=== PATIENT | male | born 1975 | race Caucasian/White ===

== ENCOUNTER 2017-03-12 11:18 | Emergency (ER) | payer OTHER, SELFPAY ==
[2017-03-12 11:23] VITALS: BMI 50.8
[2017-03-12 11:27] VITALS: BP 134/78; PULSE 67; RESP 18; TEMP 97.9; O2SAT 96
--- NOTE | 2017-03-12 11:41 | ED PDOC ---
Arrival/HPI - General Chief Complaint: Abdominal Pain Time Seen by Provider: 03/12/17 11:23 Historian: Patient - History of Present Illness Narrative History of Present Illness (Text): 03/12/17 11:41 41 year old male presents to the emergency department complaining of umbilical hernia that he has had since Dec 2015. Patient reports he was lifting at work today which made the pain worse. He states the discomfort is worse when coughing and urinating. Patient states he saw surgeon Dr. Viera for this complaint in the office but has not had surgery due to insurance issues. Patient also reports watery diarrhea today x2. Denies nausea, vomiting, hematuria, or fever. Time/Duration: Other (> 1 year) Symptom Onset: Gradual Symptom Course: Unchanged Past Medical History - Provider Review Nursing Documentation Reviewed: Yes - Infectious Disease Hx of Infectious Diseases: None - Tetanus Immunization Tetanus Immunization: Unknown - Past Medical History Past Medical History: No Previous - Cardiac Hx Cardiac Disorders: No - Pulmonary Hx Respiratory Disorders: Yes Hx Asthma: Yes (seasonal winter) Hx Bronchitis: Yes - Neurological Hx Neurological Disorder: No - HEENT Hx HEENT Disorder: No - Renal Hx Renal Disorder: No - Endocrine/Metabolic Hx Endocrine Disorders: No - Hematological/Oncological Hx Blood Disorders: No - Integumentary Hx Dermatological Disorder: No - Musculoskeletal/Rheumatological Hx Musculoskeletal Disorders: Yes (heel spur) Hx Arthritis: Yes (feet) Hx Fractures: Yes (right ankle, left wrist) - Gastrointestinal Hx Gastrointestinal Disorders: No Hx Bowel Surgery: No - Genitourinary/Gynecological Hx Genitourinary Disorders: No - Psychiatric Hx Psychophysiologic Disorder: No Hx Substance Use: No - Surgical History Hx Appendectomy: Yes (1998) Other/Comment: vasectomy (2015) - Anesthesia Hx Anesthesia: Yes Hx Anesthesia Reactions: No Hx Malignant Hyperthermia: No - Suicidal Assessment Feels Threatened In Home Enviroment: No Family/Social History - Physician Review Nursing Documentation Reviewed: Yes Family/Social History: Unknown Family HX Smoking Status: Former Smoker Hx Alcohol Use: No Hx Substance Use: No Hx Substance Use Treatment: No Allergies/Home Meds Allergies/Adverse Reactions: Allergies No Known Allergies Allergy (Verified 03/12/17 11:23) Review of Systems - Physician Review All systems were reviewed & negative as marked: Yes - Review of Systems Constitutional: absent: Fevers Gastrointestinal: Diarrhea, Other (Umbilical hernia). absent: Nausea, Vomiting Genitourinary Male: absent: Frequency, Hematuria Physical Exam Vital Signs Reviewed: Yes Vital Signs Temp Pulse Resp BP Pulse Ox 03/12/17 11:27 97.9 F 67 18 134/78 96 Temperature: Afebrile Blood Pressure: Normal Pulse: Regular Respiratory Rate: Normal Appearance: Positive for: Well-Appearing, Non-Toxic, Uncomfortable Pain Distress: None Mental Status: Positive for: Alert and Oriented X 3 - Systems Exam Head: Present: Atraumatic, Normocephalic Conjunctiva: Present: Normal Mouth: Present: Moist Mucous Membranes Neck: Present: Normal Range of Motion Respiratory/Chest: No: Respiratory Distress, Accessory Muscle Use Abdomen: Present: Normal Bowel Sounds, Hernias (Small umbilica hernia which is reduced). No: Tenderness, Distention, Peritoneal Signs Genitourinary Male: Present: Normal External Genitalia. No: Lesions, Testicle Tenderness, Penile Swelling, Masses, Erythema, Testicle Swelling Upper Extremity: Present: Normal Inspection. No: Cyanosis, Edema Lower Extremity: Present: Normal Inspection. No: Edema Neurological: Present: GCS=15, CN II-XII Intact, Speech Normal Skin: Present: Warm, Dry, Normal Color. No: Rashes Psychiatric: Present: Alert, Oriented x 3, Normal Insight, Normal Concentration Medical Decision Making ED Course and Treatment: 03/12/17 11:44 Dr. Viera evaluated the patient at bedside in the ER and states the patient should follow up in his office to schedule surgery. Patient in agreement with plan to discharged. Patient is stable for discharge. - Medication Orders Current Medication Orders: Discontinued Medications Ibuprofen (Motrin Tab) 600 mg PO STAT STA Stop: 03/12/17 11:43 Last Admin: 03/12/17 11:44 Dose: 600 mg Ibuprofen (Motrin Tab) Confirm Administered Dose 600 mg .ROUTE .STK-MED ONE Stop: 03/12/17 11:44 Last Admin: 03/12/17 11:45 Dose: - Scribe Statement The provider has reviewed the documentation as recorded by the Ramiro Tucker Provider Scribe Attestation: All medical record entries made by the Dorieibjay were at my direction and personally dictated by me. I have reviewed the chart and agree that the record accurately reflects my personal performance of the history, physical exam, medical decision making, and the department course for this patient. I have also personally directed, reviewed, and agree with the discharge instructions and disposition. Disposition/Present on Arrival - Present on Arrival Any Indicators Present on Arrival: No History of DVT/PE: No History of Uncontrolled Diabetes: No Urinary Catheter: No History of Decub. Ulcer: No History Surgical Site Infection Following: None - Disposition Have Diagnosis and Disposition been Completed?: Yes Diagnosis: Umbilical hernia Disposition: HOME/ ROUTINE Disposition Time: 11:50 Condition: STABLE Discharge Instructions (ExitCare): Umbilical Hernia (ED) Additional Instructions: Please follow up with the surgeon. Call today to make an appointment. Return to the ER for any worsening symptoms or pain, vomiting, fever, or for any other concerns. Referrals: Abdirizak Viera MD [Staff Provider] - Follow up with primary Forms: WORK NOTE
== END 2017-03-12 11:51 | disposition home or self-care (01) ==
LOC: ED 11:18
DX: K42.9 Umbilical hernia without obstruction or gangrene (principal)

== ENCOUNTER 2018-08-03 21:08 | Emergency (ER) | payer MEDICAID, SELFPAY ==
[2018-08-03 22:18] VITALS: BMI 36.3
[2018-08-03 22:22] VITALS: TEMP 98.2
[2018-08-03] MEDS ORDERED: Albuterol-Ipratrop 3 mg / 0.5 (3 ml) UD IH STA (23:00)
--- NOTE | 2018-08-03 23:38 | ED PDOC ---
Arrival/HPI - General Chief Complaint: ENT Problem Time Seen by Provider: 08/03/18 23:00 Historian: Patient - History of Present Illness Narrative History of Present Illness (Text): 08/04/18 00:19 42-year-old male presents today with a 2 week history of cough and a 2 week history of left ear pain. Patient states he was diagnosed with bronchitis and was put on a Medrol Dosepak and was given what he believes for antibiotics for the cough. Patient states he's been using nebulizer treatments at home and the cough has not resolved. He denies fevers or chills. He is also complaining of left ear pain with a decreased hearing in the left ear. Patient states he has a history of asthma. Patient denies vomiting or diarrhea. Patient complaining of nasal congestion. pt states today he was coughing so hard and pulled a muscle in the right ribs. No other complaints Past Medical History - Provider Review Nursing Documentation Reviewed: Yes - Travel History Have you recently traveled outside [place] w/in the past 3 mons?: No - Infectious Disease Hx of Infectious Diseases: None - Tetanus Immunization Tetanus Immunization: Unknown - Past Medical History Past Medical History: No Previous - Cardiac Hx Cardiac Disorders: No - Pulmonary Hx Respiratory Disorders: Yes Hx Asthma: Yes (seasonal winter) Hx Bronchitis: Yes - Neurological Hx Neurological Disorder: No - HEENT Hx HEENT Disorder: No - Renal Hx Renal Disorder: No - Endocrine/Metabolic Hx Endocrine Disorders: No - Hematological/Oncological Hx Blood Disorders: No - Integumentary Hx Dermatological Disorder: No - Musculoskeletal/Rheumatological Hx Musculoskeletal Disorders: Yes (heel spur) Hx Arthritis: Yes (feet) Hx Fractures: Yes (right ankle, left wrist) - Gastrointestinal Hx Gastrointestinal Disorders: No Hx Bowel Surgery: No - Genitourinary/Gynecological Hx Genitourinary Disorders: No - Psychiatric Hx Psychophysiologic Disorder: No Hx Substance Use: No - Surgical History Hx Appendectomy: Yes (1998) Other/Comment: vasectomy (2016) - Anesthesia Hx Anesthesia: Yes Hx Anesthesia Reactions: No Hx Malignant Hyperthermia: No - Suicidal Assessment Feels Threatened In Home Enviroment: No Family/Social History - Physician Review Nursing Documentation Reviewed: Yes Family/Social History: Unknown Family HX Smoking Status: Former Smoker Hx Alcohol Use: No Hx Substance Use: No Hx Substance Use Treatment: No Allergies/Home Meds Allergies/Adverse Reactions: Allergies No Known Allergies Allergy (Verified 08/03/18 22:18) Review of Systems - Review of Systems Constitutional: absent: Fatigue, Fevers ENT: Hearing Changes, Sinus Congestion, Other (left ear pain). absent: Sore Throat Respiratory: Cough, Wheezing. absent: SOB Cardiovascular: absent: Chest Pain, Palpitations Gastrointestinal: absent: Abdominal Pain, Nausea, Vomiting Musculoskeletal: absent: Arthralgias, Back Pain, Neck Pain Skin: absent: Rash, Pruritis Neurological: absent: Headache, Dizziness Psychiatric: absent: Anxiety, Depression Physical Exam Vital Signs Reviewed: Yes Vital Signs Temp Pulse Resp BP Pulse Ox 08/03/18 22:22 98.2 F 77 16 122/72 98 Temperature: Afebrile Blood Pressure: Normal Pulse: Regular Respiratory Rate: Normal Appearance: Positive for: Well-Appearing, Non-Toxic, Comfortable Pain Distress: None Mental Status: Positive for: Alert and Oriented X 3 - Systems Exam Head: Present: Atraumatic Ears: Present: Normal, NORMAL TM, Normal Canal. No: Erythema, TM Bulging, Fluid , TM Perf Mouth: Present: Moist Mucous Membranes. No: Drooling, Trismus Pharnyx: Present: Normal. No: ERYTHEMA, EXUDATE Nose (External): Present: Atraumatic Nose (Internal): Present: Normal Inspection Neck: Present: Normal Range of Motion Respiratory/Chest: Present: Good Air Exchange, Wheezes (slight expiratory wheeze noted bilaterally.). No: Respiratory Distress, Accessory Muscle Use, Tachypneic Cardiovascular: Present: Regular Rate and Rhythm, Normal S1, S2. No: Murmurs Abdomen: No: Tenderness, Rebound, Guarding Neurological: Present: GCS=15, Speech Normal Skin: Present: Warm, Dry, Normal Color. No: Rashes Psychiatric: Present: Alert, Oriented x 3 Medical Decision Making ED Course and Treatment: 08/04/18 02:01 Patient is nontoxic well-appearing in no distress. Vital signs are stable. c/o left ear pain and cough. hx of asthma. Patient with slight expiratory wheezing bilaterally. No tachypnea. No retracting. 2 DuoNeb given cxr; no infiltrate or effusion Patient reassessment: Lungs are clear to auscultation bilaterally. Patient is feeling much better. I advised follow up with primary care physician and ent specialist and low pressure firer within the next 2 days. I advised increase fluids and return if symptoms worsen persist or if new symptoms develop. Patient verbalizes understanding of discharge instructions and need for immediate followup. all aspects of this case were discussed the attending of record. IMPRESSION; cough, earache Motrin one tablet every 6 hours as needed for pain continue albuterol nebulizers 3 times daily as needed for cough. Zithromax one tablet once daily x4 days FLonase; 2 sprays each nostril once daily. Follow up with the ENT specialist within the next 2 days. Follow up with the low pressure firer within the next 2 days. Increase fluids Followup with primary care physician the next 2 days Return if symptoms worsen persist or if new symptoms develop - RAD Interpretation Radiology Orders: 08/03/18 23:00 CHEST TWO VIEWS (PA/LAT) [RAD] Stat - Medication Orders Current Medication Orders: Discontinued Medications Albuterol/Ipratropium (Duoneb 3 Mg/0.5 Mg (3 Ml) Ud) 3 ml IH STAT STA Stop: 08/03/18 23:01 Last Admin: 08/04/18 00:15 Dose: 3 ml Albuterol/Ipratropium (Duoneb 3 Mg/0.5 Mg (3 Ml) Ud) 3 ml IH STAT STA Stop: 08/04/18 00:41 Ibuprofen (Motrin Tab) 600 mg PO STAT STA Stop: 08/03/18 23:01 Last Admin: 08/04/18 00:15 Dose: 600 mg MAR Pain/Vitals Document 08/04/18 00:15 RD (Rec: 08/04/18 00:15 RD [id number]) Pain Reassessment Is This A Pain ReAssessment? No Sleep Is patient sleeping during reassessment? No Presence of Pain Presence of Pain Yes Disposition/Present on Arrival - Present on Arrival Any Indicators Present on Arrival: No History of DVT/PE: No History of Uncontrolled Diabetes: No Urinary Catheter: No History of Decub. Ulcer: No History Surgical Site Infection Following: None - Disposition Have Diagnosis and Disposition been Completed?: Yes Diagnosis: Cough, Earache Disposition: HOME/ ROUTINE Disposition Time: 23:38 Patient Plan: Discharge Condition: GOOD Discharge Instructions (ExitCare): Cough, Adult (DC) Additional Instructions: Motrin one tablet every 6 hours as needed for pain continue albuterol nebulizers 3 times daily as needed for cough. Zithromax one tablet once daily x4 days FLonase; 2 sprays each nostril once daily. Follow up with the ENT specialist within the next 2 days. Follow up with the low pressure firer within the next 2 days. Increase fluids Followup with primary care physician the next 2 days Return if symptoms worsen persist or if new symptoms develop Prescriptions: Albuterol HFA [Ventolin HFA 90 mcg/actuation (8 g)] 2 puff IH [id number] PRN #1 inhaler PRN Reason: Cough Albuterol 0.083% [Albuterol 0.083% Inhal Sophia (2.5 mg/3 ml) UD] 1 vial IH TID PRN #1 packet PRN Reason: Cough Azithromycin [Zithromax] 250 mg PO DAILY #4 tab Fluticasone Nasal [Flonase] 2 spr NS DAILY #1 spr Ibuprofen [Motrin] 600 mg PO Q6H PRN #20 tab PRN Reason: pain/fever reduction Referrals: Cindy Reveles MD [Primary Care Provider] - Follow up with primary Joseph Campbell MD [Staff Provider] - Follow up with primary Jareth Reeder DO [Staff Provider] - Follow up with primary Forms: [employer] [employer] (Chinese), WORK NOTE
[2018-08-04] MEDS ORDERED: Albuterol-Ipratrop 3 mg / 0.5 (3 ml) UD IH STA (00:40)
[2018-08-04 03:37] VITALS: BP 127/78; PULSE 82; RESP 18; O2SAT 99
--- NOTE | 2018-08-04 09:20 | RAD ---
Date of service: 08/04/2018 HISTORY: cough COMPARISON: 10/24/2016 TECHNIQUE: Chest PA and lateral FINDINGS: LUNGS: No active pulmonary disease. PLEURA: No significant pleural effusion identified. No pneumothorax apparent. CARDIOVASCULAR: Normal. OSSEOUS STRUCTURES: No significant abnormalities. VISUALIZED UPPER ABDOMEN: Normal. OTHER FINDINGS: None. IMPRESSION: No active disease.
== END 2018-08-04 02:30 | disposition home or self-care (01) ==
LOC: ED 21:08
DX: R05 Cough (principal); H92.02 Otalgia, left ear; J45.909 Unspecified asthma, uncomplicated; Z87.891 Personal history of nicotine dependence

== ENCOUNTER 2018-09-22 16:45 | Observation (INO) | payer MEDICAID ==
[2018-09-22 17:41] VITALS: BMI 24.7
--- NOTE | 2018-09-22 17:53 | ED PDOC ---
Arrival/HPI - General Time Seen by Provider: 09/22/18 17:16 Historian: Patient - History of Present Illness Narrative History of Present Illness (Text): 09/22/18 17:53 Patient is a 42-year-old male with past medical history of asthma, reports of intermittent pressure like L sided chest pain radiating to the L arm with numbness since 10 am, associated with shortness of breath. States that he took his inhaler without relief. Prompting concern and visit to the Emergency room. Otherwise: (-) radiation, (+) diaphoresis, (-) dyspnea, (-) pleuritic component, (-) ripping or tearing quality, (-) positional component, (-) exertional component, (-) dizziness, (-) syncope, (-) nausea, (-) vomiting, (-) calf swelling/pain, (-) recent travel, (-) neuro deficits. Patient adds that he has had a stress test 3-4 years ago and was normal. PMD [place] Past Medical History - Infectious Disease Hx of Infectious Diseases: None - Tetanus Immunization Tetanus Immunization: Unknown - Past Medical History Past Medical History: No Previous - Cardiac Hx Cardiac Disorders: No - Pulmonary Hx Respiratory Disorders: Yes Hx Asthma: Yes (seasonal winter) Hx Bronchitis: Yes - Neurological Hx Neurological Disorder: No - HEENT Hx HEENT Disorder: No - Renal Hx Renal Disorder: No - Endocrine/Metabolic Hx Endocrine Disorders: No - Hematological/Oncological Hx Blood Disorders: No - Integumentary Hx Dermatological Disorder: No - Musculoskeletal/Rheumatological Hx Musculoskeletal Disorders: Yes (heel spur) Hx Arthritis: Yes (feet) Hx Fractures: Yes (right ankle, left wrist) - Gastrointestinal Hx Gastrointestinal Disorders: No Hx Bowel Surgery: No - Genitourinary/Gynecological Hx Genitourinary Disorders: No - Psychiatric Hx Psychophysiologic Disorder: No Hx Substance Use: No - Surgical History Hx Appendectomy: Yes (1999) Other/Comment: vasectomy (2016) - Anesthesia Hx Anesthesia: Yes Hx Anesthesia Reactions: No Hx Malignant Hyperthermia: No - Suicidal Assessment Feels Threatened In Home Enviroment: No Family/Social History Family/Social History: Hypertension, Neoplasm/Cancer Smoking Status: Light Smoker < 10 Cigarettes Daily Hx Alcohol Use: Yes (on occasions) Hx Substance Use: No Hx Substance Use Treatment: No Allergies/Home Meds Allergies/Adverse Reactions: Allergies No Known Allergies Allergy (Verified 08/03/18 22:18) Review of Systems - Review of Systems Constitutional: absent: Fatigue, Fevers Respiratory: SOB. absent: Cough, Sputum Cardiovascular: Chest Pain. absent: Palpitations, Edema Gastrointestinal: absent: Abdominal Pain, Diarrhea, Vomiting Genitourinary Male: absent: Dysuria, Frequency, Hematuria Musculoskeletal: absent: Arthralgias, Back Pain, Neck Pain Skin: absent: Rash, Pruritis, Skin Lesions Neurological: absent: Headache, Dizziness, Focal Weakness Physical Exam Vital Signs Temp Pulse Resp BP Pulse Ox 09/22/18 17:39 98.2 F 70 18 128/80 98 Temperature: Afebrile Blood Pressure: Normal Pulse: Regular Respiratory Rate: Normal Appearance: Positive for: Non-Toxic, Comfortable, Other (Patient appears flushed and diaphoretic) Pain Distress: Mild Mental Status: Positive for: Alert and Oriented X 3 - Systems Exam Head: Present: Atraumatic, Normocephalic Pupils: Present: PERRL Extroacular Muscles: Present: EOMI Conjunctiva: Present: Normal Mouth: Present: Moist Mucous Membranes Neck: Present: Normal Range of Motion Respiratory/Chest: Present: Clear to Auscultation, Good Air Exchange. No: Respiratory Distress, Accessory Muscle Use Cardiovascular: Present: Regular Rate and Rhythm, Normal S1, S2. No: Murmurs Abdomen: No: Tenderness, Distention, Peritoneal Signs Back: Present: Normal Inspection Upper Extremity: Present: Normal Inspection. No: Cyanosis, Edema Lower Extremity: Present: Normal Inspection. No: Edema Neurological: Present: GCS=15, CN II-XII Intact, Speech Normal, Motor Func Grossly Intact, Normal Sensory Function Skin: Present: Warm, Dry, Normal Color. No: Rashes Psychiatric: Present: Alert, Oriented x 3, Normal Insight, Normal Concentration Medical Decision Making ED Course and Treatment: 09/22/18 17:51 Plan : - IV - Labs - court recording monitor - EKG - Chest X-ray - Asa po - SL nitro EKG : NSR at 66 bpm, no acute ST changes. Chest X-ray : NAD. Labs reviewed : trop (-). Diagnostic results d/w the patient. On reevaluation, patient reports improvement of symptoms. On exam, patient remains awake alert and oriented 3 in no acute distress. Patient notified of plan for further observation, which he agrees to. Case d/w medical transport specialist and Dr. Rosey Sims, who agrees with plan for remote tele obs under the hospitalist service. - RAD Interpretation Radiology Orders: 09/22/18 17:48 CHEST PORTABLE [RAD] Stat - Medication Orders Current Medication Orders: Aspirin (Aspirin) 325 mg PO STAT STA Stop: 09/22/18 17:48 Nitroglycerin (Nitrostat Sl Tab) 0.4 mg SL STAT STA Stop: 09/22/18 17:48 - PA / RELIGIOUS EDUCATION DIRECTOR / Resident Statement MD/DO has reviewed & agrees with the documentation as recorded. Disposition/Present on Arrival - Present on Arrival Any Indicators Present on Arrival: No History of DVT/PE: No History of Uncontrolled Diabetes: No Urinary Catheter: No History Surgical Site Infection Following: None - Disposition Have Diagnosis and Disposition been Completed?: Yes Diagnosis: Chest pain Disposition: HOSPITALIZED Disposition Time: 19:00 Patient Plan: Observation (to remote tele) Patient Problems: Current Active Problems Problem Status Onset Chest pain Acute Condition: STABLE Discharge Instructions (ExitCare): Chest Pain (ED)
[2018-09-22 18:14] LABS: BASO # 0.03 K/mm3 (0.0-2.0); BASO % 0.3 % (0.0-3.0); EOS # 0.4 (0.0-0.7); EOS % 4.6 % (1.5-5.0); GRAN # 5.2 (1.4-6.5); GRAN % 60.2 % (50.0-68.0); HEMOGLOBIN 14.2 g/dL (14.0-18.0); LYMPH # 2.3 (1.2-3.4); LYMPH % 27.1 % (22.0-35.0); MEAN CELL VOLUME 85.6 fl (80.0-105.0); MEAN CORPUSCULAR HEMOGLOBIN 29.6 pg (25.0-35.0); MEAN CORPUSCULAR HGB CONC 34.6 g/dl (31.0-37.0); MEAN PLATELET VOLUME 9.2 fl (7.0-11.0); MONO # 0.7 (0.1-0.6); MONO % 7.8 % (1.0-6.0); RBC 4.79 10^6/uL (3.5-6.1); RED CELL DISTRIBUTION WIDTH 13.1 % (11.5-14.5); WHITE BLOOD COUNT 8.6 10^3/uL (4.5-11.0)
[2018-09-22 18:21] LABS: INR 0.93; PARTIAL THROMBOPLASTIN TIME 29.1 Seconds (25.1-36.5); PROTHROMBIN TIME 10.6 SECONDS (9.4-12.5)
--- NOTE | 2018-09-22 18:26 | RAD ---
Date of service: 09/22/2018 HISTORY: CP COMPARISON: 08/04/2018 FINDINGS: LUNGS: The lungs are well inflated and clear. PLEURA: No pleural effusions or pneumothorax. CARDIOVASCULAR: The heart is normal in size. No aortic atherosclerotic calcification present. OSSEOUS STRUCTURES: Within normal limits for the patient's age. VISUALIZED UPPER ABDOMEN: Normal. OTHER FINDINGS: None. IMPRESSION: No active pulmonary disease.
[2018-09-22 18:29] LABS: BLOOD UREA NITROGEN 13 mg/dL (7-21); GFR NON-AFRICAN AMERICAN > 60
[2018-09-22 18:30] LABS: ALB/GLOB RATIO 1.1 (1.1-1.8); ALT/SGPT 23 U/L (7-56); AST/SGOT 26 U/L (17-59); CALCIUM 8.9 mg/dL (8.4-10.5)
[2018-09-22 18:40] LABS: B-TYPE NATRIURETIC PEPTIDE 18.8 pg/mL (0-450); TROPONIN I < 0.01 ng/mL
--- NOTE | 2018-09-22 19:45 | CARD ---
APPROVED REPORT Date of service: 09/22/2018 EKG Measurement Heart [id number] <Conclusion> Normal sinus rhythm Normal ECG
[2018-09-22] MEDS ORDERED: Albuterol HFA 90 mcg/actuation (8 g) IH PRN ×2 (20:46)
--- NOTE | 2018-09-22 20:54 | CP.PCM.HP ---
History of Present Illness - History of Present Illness History of Present Illness: Meño Li DO, PGY-1 Hospitalist Admission History and Physical for Dr. Rosey Sims CC: chest pain HPI: Mr. Mcintosh is a 42 year old male with PMH of asthma who presents to ED with chest pain that has been ongoing and worsening since 10 am this morning (about 11 hours ago). He describes the pain as a sharp, stabbing type pain that is worse with exertion and breathing in deeply. It improves with rest. PO Nitroglycerin give in the ED has not helped to subside the pain. He admits he had a similar episode of chest pain last year. It radiates to his left arm and causes a numbness/tingling type sensation in the left arm. It also radiates to his left shoulder and scapular region. He admits to intermittent diaphoresis, SOB, rapid heart beat, and feeling fatigued since the onset of the chest pain but denies fever/chills, SAM, blurred vision, changes in urination, dyspnea on exertion, or cough. Past Medical Hx: asthma Past Surgical Hx: vasectomy, appendectomy Allergies: NKA Home medications: albuterol inhaler PRN for asthma exacerbation Family Hx: reviewed, non-contributory Social Hx: admits to smoking about 10 cigarettes per day. Admits to occasional alcohol use (2-3 beers every 2 weeks). Denies illicit drug use. He lives at home with his . Present on Admission - Present on Admission Any Indicators Present on Admission: No History of DVT/PE: No History of Uncontrolled Diabetes: No Urinary Catheter: No Decubitus Ulcer Present: No Review of Systems - Constitutional Constitutional: absent: Chills, Fever - EENT Eyes: absent: Blurred Vision - Cardiovascular Cardiovascular: Chest Pain, Chest Pain with Activity, Diaphoresis, Dyspnea, Dyspnea on Exertion, Pain Radiating to Arm/Neck/Jaw, Palpitations. absent: Edema, Irregular Heart Rhythm, Leg Edema, Lightheadedness, Orthopnea - Respiratory Respiratory: Dyspnea. absent: Cough, Dyspnea on Exertion, Wheezing - Gastrointestinal Gastrointestinal: absent: Abdominal Pain, Nausea, Vomiting - Genitourinary Genitourinary: absent: Change in Urinary Stream Past Patient History - Infectious Disease Hx of Infectious Diseases: None - Tetanus Immunizations Tetanus Immunization: Unknown - Past Medical History & Family History Past Medical History?: Yes - Past Social History Smoking Status: Light Smoker < 10 Cigarettes Daily - CARDIAC Hx Cardiac Disorders: No - PULMONARY Hx Respiratory Disorders: Yes Hx Asthma: Yes (seasonal winter) Hx Bronchitis: Yes - NEUROLOGICAL Hx Neurological Disorder: No - HEENT Hx HEENT Problems: No - RENAL Hx Chronic Kidney Disease: No - ENDOCRINE/METABOLIC Hx Endocrine Disorders: No - HEMATOLOGICAL/ONCOLOGICAL Hx Blood Disorders: No - INTEGUMENTARY Hx Dermatological Problems: No - MUSCULOSKELETAL/RHEUMATOLOGICAL Hx Musculoskeletal Disorders: Yes (heel spur) Hx Arthritis: Yes (feet) Hx Fractures: Yes (right ankle, left wrist) - GASTROINTESTINAL Hx Gastrointestinal Disorders: No Hx Bowel Surgery: No - GENITOURINARY/GYNECOLOGICAL Hx Genitourinary Disorders: No - PSYCHIATRIC Hx Psychophysiologic Disorder: No Hx Substance Use: No - SURGICAL HISTORY Hx Appendectomy: Yes (1998) Other/Comment: vasectomy (2015) - ANESTHESIA Hx Anesthesia: Yes Hx Anesthesia Reactions: No Hx Malignant Hyperthermia: No Meds Allergies/Adverse Reactions: Allergies Allergy/AdvReac Type Severity Reaction Status Date / Time No Known Allergies Allergy Verified 08/03/18 22:18 Physical Exam - Constitutional Appears: Non-toxic, No Acute Distress - Head Exam Head Exam: ATRAUMATIC, NORMOCEPHALIC - Eye Exam Eye Exam: EOMI, Normal appearance, PERRL - ENT Exam ENT Exam: Mucous Membranes Moist - Neck Exam Neck exam: Positive for: Full Rom, Normal Inspection - Respiratory Exam Respiratory Exam: Chest Wall Tenderness (tenderness to palpation mid-sternal region), Clear to Auscultation Bilateral, NORMAL BREATHING PATTERN. absent: Rales, Rhonchi, Wheezes - Cardiovascular Exam Cardiovascular Exam: REGULAR RHYTHM, RRR, +S1, +S2. absent: Diastolic murmur, Gallop, Rubs, Systolic Murmur - GI/Abdominal Exam GI & Abdominal Exam: Normal Bowel Sounds, Soft. absent: Guarding, Tenderness - Extremities Exam Extremities exam: Positive for: normal inspection, pedal pulses present. Negative for: pedal edema - Back Exam Back exam: NORMAL INSPECTION - Neurological Exam Neurological exam: Alert, Oriented x3 - Psychiatric Exam Psychiatric exam: Normal Affect, Normal Mood - Skin Skin Exam: Dry, Intact, Warm Results - Vital Signs Recent Vital Signs: Last Vital Signs Temp 98.2 F 09/22/18 17:39 Pulse 70 09/22/18 18:25 Resp 18 09/22/18 17:39 BP 128/80 09/22/18 17:39 Pulse Ox 98 09/22/18 17:39 - Labs Result Diagrams: 09/22/18 17:57 09/22/18 17:57 Labs: Laboratory Results - last 24 hr 09/22/18 09/22/18 09/22/18 17:57 17:57 17:57 WBC 8.6 RBC 4.79 Hgb 14.2 Hct 41.0 L MCV 85.6 MCH 29.6 MCHC 34.6 RDW 13.1 Plt Count 289 MPV 9.2 Gran % 60.2 Lymph % (Auto) 27.1 [place] % (Auto) 7.8 H Eos % (Auto) 4.6 Baso % (Auto) 0.3 Gran # 5.20 Lymph # (Auto) 2.3 [place] # (Auto) 0.7 H Eos # (Auto) 0.4 Baso # (Auto) 0.03 PT 10.6 INR 0.93 APTT 29.1 Sodium 138 Potassium 3.8 Chloride 102 Carbon Dioxide 26 Anion Gap 14 BUN 13 Creatinine 0.9 Est GFR ( Amer) > 60 Est GFR (Non-Af Amer) > 60 Random Glucose 112 H Calcium 8.9 Magnesium 1.9 Total Bilirubin 0.4 AST 26 ALT 23 Alkaline Phosphatase 60 Lactate Dehydrogenase 435 Total Creatine Kinase 143 Troponin I < 0.01 NT-Pro-B Natriuret Pep 18.8 Total Protein 7.6 Albumin 4.0 Globulin 3.6 Albumin/Globulin Ratio 1.1 Assessment & Plan - Assessment and Plan (Free Text) Assessment: 42 yo M with PMH of asthma is admitted with chest pain and ACS r/o. Plan: 1. Chest pain Suspect likely 2/2 musculoskeletal strain/chostochondritis Low suspicion for cardiac etiology First troponin negative, EKG with NSR and without ST or T wave changes Trend troponin q6h x 2 Repeat EKG in AM Will get A1c, lipid panel in AM Consider adding statin to medication regimen on discharge. Patient admits to having high cholesterol previously. Cardiology consulted, recs appreciated 2. Hx asthma Albuterol q6h PRN for shortness of breath No cough or wheezing currently DVT/GI PPX: lovenox, protonix Full Code HHD Monitor on Case and plan reviewed and discussed with my attending Dr. Rosey Li, DO IM Resident PGY-1
[2018-09-22] MEDS ORDERED: Albuterol 0.083% Inhal Sol (2.5 mg/3 mL) UD IH PRN (20:58)
[2018-09-22 23:39] VITALS: RESP 20
[2018-09-23] MEDS ORDERED: Pantoprazole 40 mg EC Tab PO SCH (06:00)
[2018-09-23 06:38] LABS: ALB/GLOB RATIO 1.2 (1.1-1.8); ALBUMIN 3.7 g/dL (3.0-4.8); ALT/SGPT 32 U/L (7-56); AST/SGOT 21 U/L (17-59); BLOOD UREA NITROGEN 14 mg/dL (7-21); CALCIUM 8.6 mg/dL (8.4-10.5); GFR NON-AFRICAN AMERICAN > 60; HDL CHOLESTEROL 38 mg/dL (29-60)
[2018-09-23 06:48] LABS: LDL CHOLESTEROL 113 mg/dL (0-129); TROPONIN I < 0.01 ng/mL
[2018-09-23 07:17] VITALS: BP 117/81; TEMP 97.4; O2SAT 98
[2018-09-23 07:18] LABS: BASO # 0.04 K/mm3 (0.0-2.0); BASO % 0.7 % (0.0-3.0); EOS # 0.4 (0.0-0.7); EOS % 7.2 % (1.5-5.0); GRAN # 2.8 (1.4-6.5); GRAN % 47.6 % (50.0-68.0); HEMOGLOBIN 13.9 g/dL (14.0-18.0); LYMPH # 2.1 (1.2-3.4); LYMPH % 35.6 % (22.0-35.0); MEAN CELL VOLUME 86.7 fl (80.0-105.0); MEAN CORPUSCULAR HEMOGLOBIN 28.8 pg (25.0-35.0); MEAN CORPUSCULAR HGB CONC 33.2 g/dl (31.0-37.0); MEAN PLATELET VOLUME 9.3 fl (7.0-11.0); MONO # 0.5 (0.1-0.6); MONO % 8.9 % (1.0-6.0); RBC 4.83 10^6/uL (3.5-6.1); RED CELL DISTRIBUTION WIDTH 13.3 % (11.5-14.5); WHITE BLOOD COUNT 5.9 10^3/uL (4.5-11.0)
[2018-09-23] MEDS ORDERED: Fluticasone Nasal 50 mcg/Spray NS SCH (10:00)
[2018-09-23] MEDS ORDERED: Enoxaparin 40 mg Syringe SC SCH (10:00)
--- NOTE | 2018-09-23 10:08 | CARD ---
APPROVED REPORT Date of service: 09/23/2018 EKG Measurement Heart [id number] <Conclusion> Sinus bradycardia Otherwise normal ECG
--- NOTE | 2018-09-23 12:35 | CARD ---
APPROVED REPORT Date of service: 09/23/2018 EKG Measurement Heart [id number] <Conclusion> Marked sinus bradycardia
[2018-09-23 14:54] VITALS: PULSE 65
--- NOTE | 2018-09-23 17:50 | CP.PCM.DIS ---
<Kylie Mauricio - Last Filed: 09/23/18 17:40> Provider - Provider Date of Admission: 09/22/18 19:18 Attending physician: Oneyda Garcia DO Time Spent in preparation of Discharge (in minutes): 45 Hospital Course - Lab Results Lab Results: Most Recent Lab Values WBC 5.9 10^3/uL (4.5-11.0) D 09/23/18 05:20 RBC 4.83 10^6/uL (3.5-6.1) 09/23/18 05:20 Hgb 13.9 g/dL (14.0-18.0) L 09/23/18 05:20 Hct 41.9 % (42.0-52.0) L 09/23/18 05:20 MCV 86.7 fl (80.0-105.0) 09/23/18 05:20 MCH 28.8 pg (25.0-35.0) 09/23/18 05:20 MCHC 33.2 g/dl (31.0-37.0) 09/23/18 05:20 RDW 13.3 % (11.5-14.5) 09/23/18 05:20 Plt Count 262 10^3/uL (120.0-450.0) 09/23/18 05:20 MPV 9.3 fl (7.0-11.0) 09/23/18 05:20 Gran % 47.6 % (50.0-68.0) L 09/23/18 05:20 Lymph % (Auto) 35.6 % (22.0-35.0) H 09/23/18 05:20 [place] % (Auto) 8.9 % (1.0-6.0) H 09/23/18 05:20 Eos % (Auto) 7.2 % (1.5-5.0) H 09/23/18 05:20 Baso % (Auto) 0.7 % (0.0-3.0) 09/23/18 05:20 Gran # 2.80 (1.4-6.5) 09/23/18 05:20 Lymph # (Auto) 2.1 (1.2-3.4) 09/23/18 05:20 [place] # (Auto) 0.5 (0.1-0.6) 09/23/18 05:20 Eos # (Auto) 0.4 (0.0-0.7) 09/23/18 05:20 Baso # (Auto) 0.04 K/mm3 (0.0-2.0) 09/23/18 05:20 PT 10.6 SECONDS (9.4-12.5) 09/22/18 17:57 INR 0.93 09/22/18 17:57 APTT 29.1 Seconds (25.1-36.5) 09/22/18 17:57 Sodium 137 mmol/L (132-148) 09/23/18 05:20 Potassium 4.0 mmol/L (3.6-5.0) 09/23/18 05:20 Chloride 101 mmol/L (98-107) 09/23/18 05:20 Carbon Dioxide 28 mmol/L (21-33) 09/23/18 05:20 Anion Gap 11 (10-20) 09/23/18 05:20 BUN 14 mg/dL (7-21) 09/23/18 05:20 Creatinine 0.9 mg/dl (0.8-1.5) 09/23/18 05:20 Est GFR ( Amer) > 60 09/23/18 05:20 Est GFR (Non-Af Amer) > 60 09/23/18 05:20 Random Glucose 93 mg/dL (70-110) 09/23/18 05:20 Hemoglobin A1c 5.6 % (4.2-6.5) 09/23/18 06:00 Calcium 8.6 mg/dL (8.4-10.5) 09/23/18 05:20 Phosphorus 4.2 mg/dL (2.5-4.5) 09/23/18 05:20 Magnesium 2.0 mg/dL (1.7-2.2) 09/23/18 05:20 Total Bilirubin 0.5 mg/dL (0.2-1.3) 09/23/18 05:20 AST 21 U/L (17-59) 09/23/18 05:20 ALT 32 U/L (7-56) 09/23/18 05:20 Alkaline Phosphatase 60 U/L (38-126) 09/23/18 05:20 Lactate Dehydrogenase 435 U/L (333-699) 09/22/18 17:57 Total Creatine Kinase 143 U/L (35-230) 09/22/18 17:57 Troponin I < 0.01 ng/mL 09/23/18 05:20 NT-Pro-B Natriuret Pep 18.8 pg/mL (0-450) 09/22/18 17:57 Total Protein 6.9 g/dL (5.8-8.3) 09/23/18 05:20 Albumin 3.7 g/dL (3.0-4.8) 09/23/18 05:20 Globulin 3.2 gm/dL 09/23/18 05:20 Albumin/Globulin Ratio 1.2 (1.1-1.8) 09/23/18 05:20 Triglycerides 173 mg/dL (35-160) H 09/23/18 05:20 Cholesterol 174 mg/dL (130-200) 09/23/18 05:20 LDL Cholesterol Direct 113 mg/dL (0-129) 09/23/18 05:20 HDL Cholesterol 38 mg/dL (29-60) 09/23/18 05:20 - Hospital Course Hospital Course: Upon admission Mr. Mcintosh is a 42 year old male with a past medical history of asthma who presented to the [facility] Emergency Department (ED) on 09/22 complaining of chest pain for 11 hours. Patient described the pain as sharp and radiating to the left shoulder and scapular region. Patient admitted to a similar episode of chest pain last year. Patient also described associated numbness/tingling in the left arm, intermittent diaphoresis, shortness of breath, rapid heart beat, and fatigue. Patient denied fever, chills, headache, blurred vision, changes in urination, dyspnea on exertion, and cough. Patient stated that his home medications included albuterol inhaler, as needed. Patient admitted to smoking about 10 cigarettes per day, consuming 2-3 beers every 2 weeks, and denied illicit drug use. In the ED, patient received nitroglycerin without relief of chest pain. Hospital course Troponins were trended and were negative X3. Patient was monitored on telemetry. Initial EKG revealed HR 66 with NSR. Albuterol PRN was started for shortness of breath. Patient was started on aspirin. Ibuprofen was given for pain and zofran was given for nausea. Lovenox and protonix were started for DVT and GI prophylaxis. Chest x-ray revealed no active disease. A repeat EKG revealed HR 50 with sinus bradycardia, but the pt was asymptomatic. Third EKG revealed HR 47 with marked sinus bradycardia and again the pt remains asymptomatic. Patient denied symptoms associated with bradycardia. Cardiology was consulted, but the pt left AMA. The risks of signing out AMA were explained to the pt including but not limited to worsening of known or currently unknown conditions, permanent disability and from undiagnosed or untreated conditions. The pt has capactiy to make this informed decision and understands my explanation of the risks of leaving. Pt voluntarily accepts the risks and signed out AMA. Pt was given oppurtunity to ask questions and address concerns before leaving and was encouraged to return to the Emergency Department if any new symptoms or conditions began. For a detailed record of hospital stay, please refer to medical record. Upon discharge Patient is to follow up with primary care doctor at [facility] within 3-5 days. Patient is to continue taking ibuprofen as-needed with food for chest discomfort as well as using albuterol as-needed for asthma. Patient is to discontinue tobacco and alcohol use. These instructions were explained to the patient, and the patient understood. Pt was also informed to return to the Emergency Department if he had any return or new symptoms. Discharge Exam - Head Exam Head Exam: ATRAUMATIC, NORMAL INSPECTION, NORMOCEPHALIC - Eye Exam Eye Exam: EOMI, Normal appearance, PERRL Pupil Exam: NORMAL ACCOMODATION - Respiratory Exam Respiratory Exam: NORMAL BREATHING PATTERN, UNREMARKABLE. absent: Accessory Muscle Use, Decreased Breath Sounds, Rales, Rhonchi, Wheezes, Respiratory Distress, Stridor - Cardiovascular Exam Cardiovascular Exam: RRR, +S1, +S2. absent: Gallop, Rubs - GI/Abdominal Exam GI & Abdominal Exam: Normal Bowel Sounds, Soft, Unremarkable. absent: Tenderness - Extremities Exam Extremities exam: normal capillary refill, normal inspection, pedal pulses present - Back Exam Back exam: NORMAL INSPECTION. absent: CVA tenderness (L), CVA tenderness (R) - Neurological Exam Neurological exam: Alert, CN II-XII Intact, Normal Gait, Oriented x3 - Psychiatric Exam Psychiatric exam: Normal Affect, Normal Mood - Skin Skin Exam: Dry, Intact, Normal Color, Warm Discharge Plan - Follow Up Plan Condition: STABLE Disposition: AGAINST MEDICAL ADVICE <Oneyda Garcia - Last Filed: 09/28/18 16:24> Provider - Provider Date of Admission: 09/22/18 19:18 Attending physician: Oneyda Garcia [facility] Course - Lab Results Lab Results: Most Recent Lab Values WBC 5.9 10^3/uL (4.5-11.0) D 09/23/18 05:20 RBC 4.83 10^6/uL (3.5-6.1) 09/23/18 05:20 Hgb 13.9 g/dL (14.0-18.0) L 09/23/18 05:20 Hct 41.9 % (42.0-52.0) L 09/23/18 05:20 MCV 86.7 fl (80.0-105.0) 09/23/18 05:20 MCH 28.8 pg (25.0-35.0) 09/23/18 05:20 MCHC 33.2 g/dl (31.0-37.0) 09/23/18 05:20 RDW 13.3 % (11.5-14.5) 09/23/18 05:20 Plt Count 262 10^3/uL (120.0-450.0) 09/23/18 05:20 MPV 9.3 fl (7.0-11.0) 09/23/18 05:20 Gran % 47.6 % (50.0-68.0) L 09/23/18 05:20 Lymph % (Auto) 35.6 % (22.0-35.0) H 09/23/18 05:20 [place] % (Auto) 8.9 % (1.0-6.0) H 09/23/18 05:20 Eos % (Auto) 7.2 % (1.5-5.0) H 09/23/18 05:20 Baso % (Auto) 0.7 % (0.0-3.0) 09/23/18 05:20 Gran # 2.80 (1.4-6.5) 09/23/18 05:20 Lymph # (Auto) 2.1 (1.2-3.4) 09/23/18 05:20 [place] # (Auto) 0.5 (0.1-0.6) 09/23/18 05:20 Eos # (Auto) 0.4 (0.0-0.7) 09/23/18 05:20 Baso # (Auto) 0.04 K/mm3 (0.0-2.0) 09/23/18 05:20 PT 10.6 SECONDS (9.4-12.5) 09/22/18 17:57 INR 0.93 09/22/18 17:57 APTT 29.1 Seconds (25.1-36.5) 09/22/18 17:57 Sodium 137 mmol/L (132-148) 09/23/18 05:20 Potassium 4.0 mmol/L (3.6-5.0) 09/23/18 05:20 Chloride 101 mmol/L (98-107) 09/23/18 05:20 Carbon Dioxide 28 mmol/L (21-33) 09/23/18 05:20 Anion Gap 11 (10-20) 09/23/18 05:20 BUN 14 mg/dL (7-21) 09/23/18 05:20 Creatinine 0.9 mg/dl (0.8-1.5) 09/23/18 05:20 Est GFR ( Amer) > 60 09/23/18 05:20 Est GFR (Non-Af Amer) > 60 09/23/18 05:20 Random Glucose 93 mg/dL (70-110) 09/23/18 05:20 Hemoglobin A1c 5.6 % (4.2-6.5) 09/23/18 06:00 Calcium 8.6 mg/dL (8.4-10.5) 09/23/18 05:20 Phosphorus 4.2 mg/dL (2.5-4.5) 09/23/18 05:20 Magnesium 2.0 mg/dL (1.7-2.2) 09/23/18 05:20 Total Bilirubin 0.5 mg/dL (0.2-1.3) 09/23/18 05:20 AST 21 U/L (17-59) 09/23/18 05:20 ALT 32 U/L (7-56) 09/23/18 05:20 Alkaline Phosphatase 60 U/L (38-126) 09/23/18 05:20 Lactate Dehydrogenase 435 U/L (333-699) 09/22/18 17:57 Total Creatine Kinase 143 U/L (35-230) 09/22/18 17:57 Troponin I < 0.01 ng/mL 09/23/18 05:20 NT-Pro-B Natriuret Pep 18.8 pg/mL (0-450) 09/22/18 17:57 Total Protein 6.9 g/dL (5.8-8.3) 09/23/18 05:20 Albumin 3.7 g/dL (3.0-4.8) 09/23/18 05:20 Globulin 3.2 gm/dL 09/23/18 05:20 Albumin/Globulin Ratio 1.2 (1.1-1.8) 09/23/18 05:20 Triglycerides 173 mg/dL (35-160) H 09/23/18 05:20 Cholesterol 174 mg/dL (130-200) 09/23/18 05:20 LDL Cholesterol Direct 113 mg/dL (0-129) 09/23/18 05:20 HDL Cholesterol 38 mg/dL (29-60) 09/23/18 05:20 Attending/Attestation - Attestation I have personally seen and examined this patient.: Yes I have fully participated in the care of the patient.: Yes I have reviewed all pertinent clinical information, including history, physical exam and plan: Yes Notes (Text): Please note this summary is for 09/23/18. Patient seen and examined by me with resident at 12PM on 09/23/18. Case including discharge plan discussed with resident. Agree with above with following additions/corrections. Patient is a 42 year old male with past medical history significant for asthma that presented to the emergency room for chest pain. Please see H&P for full details. Patient was admitted with chest pain and mild intermittent asthma with no acute exacerbation. Troponins were within normal limits. Cardiology was consulted. Chest xray per business writer showed no active pulmonary disease. Triglycerides were elevated. Patient was counseled on diet and exercise. BNP was within normal limits. HgBa1c was 5.6. Patient was feeling better and asked to sign out against medical advice prior to business writer evaluating him Patient requested to sign out against medical advice. This action is against my medical advice to the patient and the decision was made with informed refusal. The patient was told that further work up and treatment is necessary and a full explanation of my rationale was given. The risks for leaving were explained to the patient and include but are not limited to increased mortality and morbidity, , and worsening of known or unknown conditions. Patient was AAOx3 and was able to make this informed decision and understood the clinical situation and my explanation of the risks of leaving. The patient voluntarily accepted these risks and signed an AMA form. The patient was given the opportunity to ask questions and reconsider. The patient was encouraged to return to the emergency room at any time for further treatment. Prior to signing out AMA, patient stated that he was feeling much better. Left breast/shoulder pain had improved and only hurt when deeply palpated. No shortness of breath with ambulation. No palpitations. No headaches or dizziness. No change in vision. No nausea, vomiting, or abdominal pain. No dysuria. No fevers or chills. No diarrhea or constipation. Physical exam: General: Awake and alert sitting upin bed in no acute distress HEENT: Normocephalic, atraumatic. Extraocular muscles intact, pupils equal and reactive, no scleral icterus. Oropharynx is pink and moist. Neck is supple. Cardiovascular: Regular rhythm. Normal S1 and S2. No murmurs, rubs, or gallops appreciated Pulmonary: Normal respiratory effort. No rhonchi, rales, or wheezing appreciated. Gastrointestinal: Soft. Nondistended. Nontender. Positive obese abdomen. Positive bowel sounds all 4 quadrants. No guarding. Musculoskeletal: Moves all extremities. No calf tenderness. No CVA tenderness. Positive anterior left chest wall tenderness Central nervous system: AAO x3, CN 2-12 grossly intact. Dermatologic: Skin warm and dry. Please see chart for full details.
--- NOTE | 2018-09-26 12:29 | PQF ---
PROVIDER RESPONSE TEXT: Mild intermittent asthma, no exacerbation REVIEWER QUERY TEXT: Asthma Specificity and Type Asthma is documented in the Medical Record. Please specify the type and severity of asthma and indic ate if this is associated with exacerbation or status asthmaticus. Such as: -- Mild intermittent -- Mild persistent -- Moderate persistent -- Severe persistent -- Exercise induced bronchospasm -- Cough variant asthma -- Other, please specify The patient's Clinical Indicators include: Please see below. Thank you. Query created by: Kayce Ron on 09/26/2018 12:02 PM Electronically signed by: Oneyda Garcia DO 09/26/2018 12:26 PM
== END 2018-09-23 15:55 | disposition left against medical advice (07) ==
LOC: ED 16:45 → ERH 19:18 → 3RSO 21:28
PROVIDERS: ADMIT Hospitalist; ATTEND Hospitalist
DX: J45.21 Mild intermittent asthma with (acute) exacerbation (principal); R07.9 Chest pain, unspecified; F17.210 Nicotine dependence, cigarettes, uncomplicated; Z90.49 Acquired absence of other specified parts of digestive tract; M19.072 Primary osteoarthritis, left ankle and foot; M19.071 Primary osteoarthritis, right ankle and foot; Z98.52 Vasectomy status; R40.2412 Glasgow coma scale score 13-15, at arrival to emergency department
CPT/HCPCS: 36415; 71045; 80053; 80061; 82550; 83036; 83615; 83735; 83880; 84100; 84484; 85025; 85610; 85730; 93005; 96372; 99285; G0378; J1650